=== PATIENT | male | born 1975 | race Caucasian/White ===

== ENCOUNTER 2019-01-01 15:58 | Inpatient (IN) | payer BC ==
[~2019-01-01] VITALS: Ht 175.3 cm; Wt 133.2 kg
[~2019-01-01 15:58] MED LIST: ASPIRIN 32325 MG/TAB PO; ASTELIN NASAL S34 ML NS; CEPHALEXIN500 M1; ESTRACE0.5 MG PO; LEVAQUIN 5500 MG/TA1 PO; MULTIPLE VITAMI1 CAP PO; NORCO 325 MG-7.1 TAB PO; PRAVACHOL 40MG40 MG PO; PRILOSEC 20MG20 MG PO; SYNTHROID 0.0.025 MG PO; TOPROL XL 50MG50 MG PO; TRICOR145 MG PO; VITAMIN D1000 IU PO; ZESTRIL40 MG PO
[2019-04-15] VITALS (10 sets, daily range): BP systolic 107–145; BP diastolic 64–92; PULSE 57–97; TEMP 97.3–98.7
[2019-04-15] MEDS ORDERED: FOLIC ACID0.4 MG PO (07:53)
[2019-04-15] MEDS ORDERED: NATURAL IRON65 MG PO (07:53)
[2019-04-15] MEDS ORDERED: ALEVE LIQCAPS PO (07:53)
[2019-04-15] MEDS ORDERED: NATURAL VITAM1000 MG PO (07:54)
[2019-04-16 00:14] VITALS: BP 118/74; PULSE 70; TEMP 98.8
[2019-04-16 03:08] VITALS: BP 126/78; PULSE 76; TEMP 99.3
[2019-04-16 07:32] LABS: HEMATOCRIT 38.8 % (42.0-52.0); HEMOGLOBIN 12.6 g/dl (13.5-18.0)
[2019-04-16 07:53] VITALS: BP 128/88; PULSE 83; TEMP 98.2
[2019-04-16 11:34] VITALS: BP 116/76; PULSE 79; TEMP 97.8
[2019-04-16 16:18] VITALS: BP 135/82; PULSE 93; TEMP 98
[2019-04-17 04:55] VITALS: BP 134/76; PULSE 92; TEMP 97.6
[2019-04-17] MEDS ORDERED: ASPI325T6 PO (06:42)
[2019-04-17] MEDS ORDERED: ROXICODONE 55 MG/TAB PO (06:43)
[2019-04-17] MEDS ORDERED: NORCO 325 MG-7.1 TAB PO (06:43)
[2019-04-17] MEDS ORDERED: COLACE 100100 MG/CAP PO (06:44)
[2019-04-17] MEDS ORDERED: TYLENOL 500MG500 MG PO (06:44)
[2019-04-17 08:38] VITALS: BP 134/83; PULSE 86; TEMP 98.8
[2019-04-17 12:43] VITALS: BP 114/61; PULSE 95; TEMP 98
== END 2019-04-17 13:55 | disposition home or self-care (01) | DRG 470 ==
LOC: JCC 03-12 11:00
PROVIDERS: ADMIT Orthopaedic Surgery
PROC: 0SRC0J9 Replacement of Right Knee Joint with Synthetic Substitute, Cemented, Open Approach (ICD-10-PCS; principal; 2019-04-15 10:00)
DX: M17.11 Unilateral primary osteoarthritis, right knee (principal); F42.9 Obsessive-compulsive disorder, unspecified
CPT/HCPCS: A4314; A9284; C1776; J0690; J1885; J2270; J2405; J2704; J7030; J7120